=== PATIENT | male | born 1965 | race Caucasian/White ===

== ENCOUNTER → 2020-12-25 09:05 | Outpatient (CLI) | payer OTHER, SELFPAY ==
[2020-12-25 19:33] LABS: SARS-CoV-2 RNA PCR Positive
== END ==
PROVIDERS: Visit Provider Internal Medicine Endocrinology, Diabetes & Metabolism
DX: Z20.822 Contact with and (suspected) exposure to COVID-19 (principal)
CPT/HCPCS: C9803; U0003; U0005

== ENCOUNTER 2025-09-30 12:21 | Emergency (ER) | payer OTHER, SELFPAY ==
--- NOTE | ~2025-09-30 | XR_ITS ---
EXAMINATION: XR ankle LT min 3V, 09/30/2025 12:50 DROP TESTER HISTORY: no known injury COMPARISON: No comparisons available. Findings: There is a remote corticated fractures of the medial malleolus, no acute fracture is identified. Large calcaneal spur. Moderate Achilles enthesopathy. Soft tissues unremarkable. Impression: No acute fracture or malalignment. Reviewed, dictated and finalized at location P. TESTER Impression: No acute fracture or malalignment.
[2025-09-30 12:33] VITALS: BP 155/78; PULSE 76; RESP 16; TEMP 36.8; O2SAT 98
--- NOTE | 2025-09-30 12:51 | ED.GENADULT ---
HPI - General Adult General Chief complaint: Upper Respiratory Infection Stated complaint: Snotty nose, cough at night Time Seen by Provider: 09/30/25 12:56 Source: patient, RN notes reviewed and old records reviewed Mode of arrival: ambulatory Limitations: no limitations History of Present Illness HPI narrative: 60 year old male who presents to [facility] with complaints of 2 weeks sinus congestion sinus pressure and stuffy nose with cough which is worse at bedtime,patient reports no fevers states phlegm has been from brown to now a yellow in color. 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 Patient reports that he recalls no injury to his left ankle which has been hurting lateral aspect for about 6 months intermittently. and he did have outpatient x-ray order but he never got it done. Patient reports that pain is worse when is he is up ambulating a lot. MD complaint: cold symptoms, left ankle lateral aspect no injury Onset (ago): week(s) (2 weeks cold symptoms) Location: head, face, left and lower extremity (lateral ankle) Severity scale (1-10): 6 Quality: aching and other (soreness) Pain Consistency: intermittent (left lateral ankle) Exacerbating factors: movement and other (ambulating) Treatments prior to arrival: other (cold medication and sudafed) Related Data Home Medications ?Medication ?Instructions ?Recorded ?Confirmed ?Last Taken ?Type amlodipine 10 mg tablet mg 09/30/25 Unknown History apixaban 5 mg tablet (Eliquis) mg 09/30/25 Unknown History aspirin 325 mg tablet mg 09/30/25 Unknown History atorvastatin 10 mg tablet mg 09/30/25 Unknown History furosemide 20 mg tablet mg 09/30/25 Unknown History lisinopril 20 mg tablet mg 09/30/25 Unknown History Allergies Allergy/AdvReac Type Severity Reaction Status Date / Time Penicillins Allergy Unknown UNSURE, Verified 09/30/25 12:50 FATHER ALLERGIC TO PCN Review of Systems Review of Systems: CONSTITUTIONAL: Denies fever, chills, or sweats. EYES: Denies visual changes, redness, or discharge. ENT:Reports rhinorrhea, congestion,no sore throat, no otalgia. CARDIOVASCULAR: Denies chest pain, palpitations, or edema. RESPIRATORY: Reports productive cough denies dyspnea. GASTROINTESTINAL: Denies abdominal pain, nausea, vomiting, or diarrhea. GENITOURINARY: Denies dysuria or hematuria. SKIN: Denies rash or itching. MUSCULOSKELETAL: Denies back pain,+ intermittent left lateral ankle pain for several months joint pain without known trauma, or myalgia. NEUROLOGIC: some frontal headache,no numbness, or weakness. PSYCHIATRIC: Denies anxiety or depression. All systems reviewed & are unremarkable except as noted in HPI and below PMFSH Past Medical History Medical History (Updated 10/01/25 @ 13:08 by Marcelina Nath APRN) Obesity Pneumonia Hyperlipidemia Hypertension Pulmonary embolism Surgical History Surgical History (Updated 10/01/25 @ 12:55 by Marcelina Nath APRN) History of tonsillectomy Social History Social History (Updated 10/01/25 @ 12:53 by Marcelina Nath APRN) Smoking status: Never smoker Alcohol intake: current Alcohol use details: rare social Substance use type: does not use Living arrangements: with family Gender identity (if verbalized by the patient): Male Comments At time of signature, agree with nursing past medical, surgical, social and family history. There is no relevant family history pertinent to the presenting complaint Exam Narrative: GENERAL: Well-appearing, well-nourished,obese and in no acute distress. HEAD: Normocephalic, atraumatic. EYES: PERRLA and EOMI. ENT: Nares red clear, positive rhinorrhea no epistaxis. Mucous membranes moist.TM's normal throat pink without tonsils present NECK: Supple.no lymphadenopathy CHEST: Clear to auscultation. No respiratory distress. productive cough SAO2 98% on room air HEART: Regular rate and rhythm. No murmur heard. Normal peripheral pulses. ABDOMEN: Soft, nontender, nondistended, normal active bowel sounds. EXTREMITIES: Normal range of motion. No edema.reports left lateral ankle pain for about 6 months with no trauma to ankle known, no swelling noted increased pain with increased ambulation. SKIN: Warm, dry, no rash. NEURO: No focal deficits. Alert and oriented x3. Course Course Emergency Course: Patient is aware of diagnosis, understands and agrees to treatment plan.? Anticipatory guidance given.? Patient agrees to follow-up as directed and is aware of reasons to seek care at the emergency department. Portions of this record may have been created with voice recognition software Level of Care: [facility] Visit Vital Signs Vital signs: Vital Signs Temperature 36.8 C 09/30/25 12:33 Pulse Rate 76 09/30/25 12:33 Respiratory Rate 16 09/30/25 12:33 Blood Pressure 155/78 H 09/30/25 12:33 Pulse Oximetry 98 09/30/25 12:33 Oxygen Delivery Room Air 09/30/25 12:33 Temperature 36.8 C 09/30/25 12:33 Pulse Rate 76 09/30/25 12:33 Respiratory Rate 16 09/30/25 12:33 Blood Pressure 155/78 H 09/30/25 12:33 Pulse Oximetry 98 09/30/25 12:33 Oxygen Delivery Room Air 09/30/25 12:33 Reviewed Medical Decision Making MDM Narrative Medical decision making narrative: Exam findings and imaging show no acute concerns or changes; patient is non-toxic appearing and is in no distress.? Patient is appropriate for outpatient treatment and follow-up Differential Diagnosis Differential Diagnosis: URI, sinusitis, productive cough, pneumonia, viral infection. pain to left ankle for 6 months Medical Records Medical records reviewed: Yes I reviewed the external patient's medical records. Vital Signs Vital Signs: Vital Signs Temperature 36.8 C 09/30/25 12:33 Pulse Rate 76 09/30/25 12:33 Respiratory Rate 16 09/30/25 12:33 Blood Pressure 155/78 H 09/30/25 12:33 Pulse Oximetry 98 09/30/25 12:33 Oxygen Delivery Room Air 09/30/25 12:33 Temperature 36.8 C 09/30/25 12:33 Pulse Rate 76 09/30/25 12:33 Respiratory Rate 16 09/30/25 12:33 Blood Pressure 155/78 H 09/30/25 12:33 Pulse Oximetry 98 09/30/25 12:33 Oxygen Delivery Room Air 09/30/25 12:33 reviewed Imaging Data Attestation: I personally reviewed and interpreted this imaging study as follows: My impression: no acute fracture or mal alignment, remote corticated fractures of medial malleolus and large calcaneal spur and moderate Achilles enthesopathy soft tissues unremarkable Radiologist's impression: [facility] [address] [place] [address] XRay Report Signed Patient: Martín Galeas : 1965 MR#: [id number] Age: 60 Acct:[id number] Loc: [facility] ADM Date: 09/30/[address]: Ordering Physician: Marcelina Nath APRN Date of Service: 09/30/25 Procedure(s): XR ankle LT min 3V Accession Number(s): [id number] cc: Randall, Driss Inman MD; Marcelina Nath APRN~ EXAMINATION: XR ankle LT min 3V, 09/30/2025 12:50 OPTICAL ADVISOR HISTORY: no known injury COMPARISON: No comparisons available. Findings: There is a remote corticated fractures of the medial malleolus, no acute fracture is identified. Large calcaneal spur. Moderate Achilles enthesopathy. Soft tissues unremarkable. Impression: No acute fracture or malalignment. Reviewed, dictated and finalized at location P. CAL ADVISOR Please be advised this is a medical document. It is intended for [id number] communication. It is written in medical language and may contain unfamiliar abbreviations or verbiage. Medical documents are intended to carry relevant information, facts as evident, and the clinical opinion of the practitioner at the time of the encounter. This report may have been done utilizing a voice recognition system. Attempts have been made to correct errors. However, there may be uncorrected grammatical, spelling, and recognition errors present. The file time of this note does not necessarily represent the time of service. Dictated By: Mina Ma MD 09/30/25 1310 Signed By: <Electronically signed by Mina Ma MD in OV> Critical Care Time Critical Care Time Critical Care Time: No Discharge Plan Discharge Clinical Impression: Sinusitis, Cough in adult patient, Ankle pain, left Patient Disposition: Home Condition: Stable Instructions: Antibiotic Form, Sinusitis (ED), Arthralgia (ED) Additional Instructions: Increase fluids especially juices and water [id number] cough and cold medicine of your choice for your symptoms Zyrtec Claritin or Viviana include Coricidin brand decongestant heat to the face 20-30 minutes 4-6 times a day for pain Salt water gargles, throat lozenges or throat sprays as desired Antibiotic as directed--finished the medication wear a lace up splint to left ankle and follow up with your PCP If your symptoms persist, change or worsen significantly before you can contact your personal physician then please, without delay, go to the emergency department for further evaluation. Follow-up with PCP in 7-10 days or sooner if needed Follow up with PCP soon in regards to your blood pressure which is elevated above threshold for referral. Blood pressure above 120/80 may indicate pre-hypertension.155/78 Tylenol for pain since you are taking blood thinner Patient Language: Czech Prescriptions: New azithromycin 500 mg tablet 500 mg PO DAILY 5 Days Qty: 5 0RF No Action atorvastatin 10 mg tablet Patient Comments: PT STATES NOT TAKING aspirin 325 mg tablet lisinopril 20 mg tablet amlodipine 10 mg tablet Patient Comments: PT STATES NOT TAKING furosemide 20 mg tablet Eliquis 5 mg tablet Follow-up/Referrals: Randall,Driss Inman MD [Primary Care Provider, Unknown] Time of Disposition: 13:48 Quality Bla[place] Coma Scale Eyes: Open Verbal: Oriented and Alert Motor: Follows Commands Blaise Coma Total Score: 15
== END 2025-09-30 14:00 | disposition home or self-care (01) ==
PROVIDERS: Emergency Provider Registered Nurse; PCP Internal Medicine Endocrinology, Diabetes & Metabolism
DX: J32.9 Chronic sinusitis, unspecified (principal); R05.9 Cough, unspecified; M25.572 Pain in left ankle and joints of left foot; I10 Essential (primary) hypertension; E78.5 Hyperlipidemia, unspecified; E66.9 Obesity, unspecified; Z68.42 Body mass index [BMI] 45.0-49.9, adult; Z86.711 Personal history of pulmonary embolism; Z79.01 Long term (current) use of anticoagulants
CPT/HCPCS: 73610; 99203; G0463